=== PATIENT | female | born 1960 | race Caucasian/White ===

== ENCOUNTER → 2017-01-31 | Outpatient (CLI) | payer OTHER, BC ==
[2015-11-17 11:25] VITALS: BP 188/93
[~2017-01-31] MED LIST: DAILY VITE1 TA1 PO; MINOCYCLINE HC100 MG PO
== END ==
LOC: LAB 16:36
DX: Z00.00 Encounter for general adult medical examination without abnormal findings (principal)

== ENCOUNTER → 2017-11-04 | Outpatient (CLI) | payer BC ==
[~2017-11-04] VITALS: Ht 160 cm; Wt 95.0 kg
[~2017-11-04] MED LIST changes: +GOOD NEIGHBOR200 M1 PO
[2017-11-04 07:56] LABS: HEMATOCRIT 44.9 % (37.0-47.0); HEMOGLOBIN 14.9 g/dL (12.5-16.0); MEAN CELL VOLUME 89 fl (78-100); MEAN CORPUSCULAR HEMOGLOBIN 30 pg (27-31); MEAN CORPUSCULAR HGB CONC 33 g/dL (33-37); MEAN PLATELET VOLUME 10.2 fl (7.4-10.4); PLATELET COUNT 301 K/mm3 (130-400); RED BLOOD COUNT 5.04 M/mm3 (4.10-5.30); RED CELL DISTRIBUTION WIDTH 13.2 % (11.5-14.5); WHITE BLOOD COUNT 6.7 K/mm3 (4.8-10.8)
[2017-11-04 08:00] VITALS: BP 151/88
[2017-11-04 08:35] LABS: ALBUMIN 4.2 g/dL (3.5-5.0); BUN/CREATININE RATIO 17.3 (6.0-26.0); TOTAL BILIRUBIN 0.7 mg/dL (0.2-1.3); TOTAL PROTEIN 7.7 g/dL (6.3-8.2)
[2017-11-04 08:45] LABS: LYMPHOCYTE 24 % (20-51); MONOCYTE 6 % (3-10); NEUTROPHILS 60 % (42-75)
[2017-11-04 11:25] LABS: URINE APPEARANCE CLEAR; URINE BILIRUBIN NEGATIVE (NEGATIVE); URINE BLOOD NEGATIVE (NEGATIVE); URINE COLOR YELLOW; URINE GLUCOSE NEGATIVE (NEGATIVE); URINE KETONE NEGATIVE (NEGATIVE); URINE LEUKOCYTE ESTERASE NEGATIVE (NEGATIVE); URINE NITRATE NEGATIVE (NEGATIVE); URINE PROTEIN(semi-quant) NEGATIVE (NEGATIVE); URINE UROBILINOGEN NORMAL (NORMAL)
== END ==
LOC: LAB 07:38 → RAD 07:38
PROVIDERS: Internal Medicine
DX: Z00.00 Encounter for general adult medical examination without abnormal findings (principal); Z88.2 Allergy status to sulfonamides

== ENCOUNTER → 2018-02-07 | Outpatient (CLI) | payer BC ==
[2017-11-04 08:00] VITALS: BP 151/88
== END ==
LOC: LAB 16:24
DX: Z00.00 Encounter for general adult medical examination without abnormal findings (principal)

== ENCOUNTER → 2018-04-11 | Day surgery (SDC) | payer BC ==
[2017-11-04 08:00] VITALS: BP 151/88
== END | disposition home or self-care (01) ==
LOC: MSO 09:43
DX: Z12.11 Encounter for screening for malignant neoplasm of colon (principal); I10 Essential (primary) hypertension; Z79.899 Other long term (current) drug therapy
CPT/HCPCS: 00812; J2704; J3010; J7120

== ENCOUNTER → 2019-02-13 | Outpatient (CLI) | payer BC ==
[2017-11-04 08:00] VITALS: BP 151/88
[2019-02-13 17:33] LABS: BASO # 0.1 (0.02-0.10); EOS # 0.6 (0.04-0.40); EOS % 7.5 % (1.0-5.0); HEMATOCRIT 43.6 % (37.0-47.0); HEMOGLOBIN 14.4 g/dL (12.5-16.0); LYMPH# 1.9 (1.50-4.00); MEAN CELL VOLUME 90 fl (78-100); MEAN CORPUSCULAR HEMOGLOBIN 30 pg (27-31); MEAN CORPUSCULAR HGB CONC 33 g/dL (33-37); MEAN PLATELET VOLUME 10.3 fl (7.4-10.4); MONO # 0.4 (0.20-0.80); NEU # 4.3 (1.40-6.50); PLATELET COUNT 299 K/mm3 (130-400); RED BLOOD COUNT 4.85 M/mm3 (4.10-5.30); RED CELL DISTRIBUTION WIDTH 12.9 % (11.5-14.5); WHITE BLOOD COUNT 7.3 K/mm3 (4.8-10.8)
[2019-02-13 18:42] LABS: ERYTHROCYTE SEDIMENTATION RATE 13 mm/hr (0-30)
[2019-02-13 23:25] LABS: ALBUMIN 4.3 g/dL (3.5-5.0); CALCIUM 10.5 mg/dL (8.4-10.2); POTASSIUM 4.1 mmol/L (3.5-5.1); TOTAL BILIRUBIN 0.3 mg/dL (0.2-1.2); TOTAL PROTEIN 7.4 g/dL (6.4-8.3)
== END ==
LOC: LAB 16:36
PROVIDERS: Internal Medicine
DX: F41.9 Anxiety disorder, unspecified (principal); R51 Headache; R53.83 Other fatigue; R20.2 Paresthesia of skin; R63.5 Abnormal weight gain; E78.5 Hyperlipidemia, unspecified; E55.9 Vitamin D deficiency, unspecified; R79.9 Abnormal finding of blood chemistry, unspecified

== ENCOUNTER 2020-02-25 17:37 | Emergency (ER) | payer BC ==
[~2020-02-25] VITALS: Ht 160 cm; Wt 98.2 kg
[~2020-02-25 17:37] MED LIST changes: -CETIRIZINE HCL10 MG PO; -ESCITALOPRAM10 MG PO; -HYDROCHLOROTHIA1 T14 PO; -MACROBID 1100 MG/CAP PO; -PHENAZOPYRIDIN100 MG PO
[2020-02-25] MEDS ORDERED: ESCITALOPRAM10 MG PO (18:28)
[2020-02-25] MEDS ORDERED: HYDROCHLOROTHIA1 T14 PO (18:29)
[2020-02-25] MEDS ORDERED: CETIRIZINE HCL10 MG PO (18:29)
[2020-02-25] MEDS ORDERED: MACROBID 1100 MG/CAP PO (18:29)
[2020-02-25] MEDS ORDERED: PHENAZOPYRIDIN100 MG PO (18:30)
[2020-02-25 18:34] LABS: BASO # 0.1 (0.02-0.10); EOS # 0.5 (0.04-0.40); EOS % 4.5 % (1.0-5.0); HEMATOCRIT 45.1 % (37.0-47.0); HEMOGLOBIN 14.9 g/dL (12.5-16.0); LYMPH# 1.6 (1.50-4.00); MEAN CELL VOLUME 91 fl (78-100); MEAN CORPUSCULAR HEMOGLOBIN 30 pg (27-31); MEAN CORPUSCULAR HGB CONC 33 g/dL (33-37); MEAN PLATELET VOLUME 11.3 fl (7.4-10.4); MONO # 0.8 (0.20-0.80); NEU # 8.1 (1.40-6.50); PLATELET COUNT 225 K/mm3 (130-400); RED BLOOD COUNT 4.98 M/mm3 (4.10-5.30); RED CELL DISTRIBUTION WIDTH 13.5 % (11.5-14.5); WHITE BLOOD COUNT 11.1 K/mm3 (4.8-10.8)
[2020-02-25 18:53] LABS: PH-URINE 6.5 (5.0 - 8.0); URINE APPEARANCE CLOUDY; URINE BILIRUBIN NEGATIVE (NEGATIVE); URINE COLOR YELLOW; URINE GLUCOSE NEGATIVE (NEGATIVE); URINE KETONE NEGATIVE (NEGATIVE); URINE PROTEIN(semi-quant) TRACE mg/dL (NEGATIVE)
[2020-02-25 18:54] LABS: URINE BLOOD 250 ery/uL (NEGATIVE); URINE LEUKOCYTE ESTERASE 2+ (NEGATIVE); URINE NITRATE POSITIVE (NEGATIVE); URINE UROBILINOGEN NORMAL (NORMAL); URINE WBC >50 /hpf (0-3)
[2020-02-25 19:02] LABS: POTASSIUM 4.3 mmol/L (3.5-5.1)
[2020-02-25 19:03] LABS: CALCIUM 9.7 mg/dL (8.3-10.5)
[2020-02-25 19:04] LABS: TOTAL PROTEIN 7.2 g/dL (6.4-8.3)
[2020-02-25 19:06] LABS: TOTAL BILIRUBIN 0.9 mg/dL (0.2-1.2)
[2020-02-25 21:54] VITALS: BP 100/76
== END 2020-02-25 21:54 | disposition home or self-care (01) ==
LOC: ED 17:37
PROVIDERS: Nurse Practitioner Primary Care
DX: N30.90 Cystitis, unspecified without hematuria (principal); I10 Essential (primary) hypertension; K21.9 Gastro-esophageal reflux disease without esophagitis; Z90.710 Acquired absence of both cervix and uterus
CPT/HCPCS: A4216; J0696; J1885; J2270; J2405; J7030; Q9967

== ENCOUNTER → 2020-02-25 | Outpatient (CLI) | payer BC ==
[2017-11-04 08:00] VITALS: BP 151/88
[~2020-02-25] MED LIST changes: +CETIRIZINE HCL10 MG PO; +ESCITALOPRAM10 MG PO; +HYDROCHLOROTHIA1 T14 PO; +MACROBID 1100 MG/CAP PO; +PHENAZOPYRIDIN100 MG PO
== END ==
LOC: LAB 13:15
DX: R30.0 Dysuria (principal)

== ENCOUNTER → 2020-03-11 | Outpatient (CLI) | payer BC ==
[2020-02-25 21:54] VITALS: BP 100/76
[~2020-03-11] MED LIST changes: +CETIRIZINE HCL10 MG PO; +ESCITALOPRAM10 MG PO; +HYDROCHLOROTHIA1 T14 PO; +MACROBID 1100 MG/CAP PO; +PHENAZOPYRIDIN100 MG PO
[2020-03-11 15:54] LABS: POTASSIUM 4.2 mmol/L (3.5-5.1)
[2020-03-11 15:55] LABS: ALBUMIN 4.2 g/dL (3.5-5.0)
[2020-03-11 15:57] LABS: TOTAL PROTEIN 7.6 g/dL (6.4-8.3)
[2020-03-11 15:59] LABS: TOTAL BILIRUBIN 0.7 mg/dL (0.2-1.2)
[2020-03-11 16:13] LABS: BASO # 0.1 (0.02-0.10); EOS # 0.5 (0.04-0.40); EOS % 8.8 % (1.0-5.0); HEMOGLOBIN 14.2 g/dL (12.5-16.0); LYMPH# 1.1 (1.50-4.00); MEAN CELL VOLUME 90 fl (78-100); MEAN CORPUSCULAR HEMOGLOBIN 30 pg (27-31); MEAN CORPUSCULAR HGB CONC 33 g/dL (33-37); MEAN PLATELET VOLUME 10.5 fl (7.4-10.4); MONO # 0.4 (0.20-0.80); NEU # 3.6 (1.40-6.50); PLATELET COUNT 334 K/mm3 (130-400); RED BLOOD COUNT 4.77 M/mm3 (4.10-5.30); WHITE BLOOD COUNT 5.7 K/mm3 (4.8-10.8)
[2020-03-11 16:37] LABS: URINE APPEARANCE CLEAR; URINE BILIRUBIN NEGATIVE (NEGATIVE); URINE BLOOD NEGATIVE (NEGATIVE); URINE COLOR YELLOW; URINE GLUCOSE NEGATIVE (NEGATIVE); URINE KETONE NEGATIVE (NEGATIVE); URINE LEUKOCYTE ESTERASE NEGATIVE (NEGATIVE); URINE NITRATE NEGATIVE (NEGATIVE); URINE PROTEIN(semi-quant) NEGATIVE (NEGATIVE); URINE UROBILINOGEN NORMAL (NORMAL); URINE WBC 0-1 /hpf (0-3)
[2020-03-11 17:35] LABS: ERYTHROCYTE SEDIMENTATION RATE 20 mm/hr (0-30)
== END ==
LOC: LAB 15:18
PROVIDERS: Internal Medicine
DX: Z00.00 Encounter for general adult medical examination without abnormal findings (principal)

== ENCOUNTER → 2020-05-16 | Outpatient (CLI) | payer BC | LOC: LAB 09:28 | DX: Z20.828 Contact with and (suspected) exposure to other viral communicable diseases (principal) ==

== ENCOUNTER → 2021-01-29 | Day surgery (SDC) | payer BC | LOC: MSO 07:54 | DX: K21.00 Gastro-esophageal reflux disease with esophagitis, without bleeding (principal); K22.2 Esophageal obstruction; K25.7 Chronic gastric ulcer without hemorrhage or perforation | CPT/HCPCS: 00731; A4649; C1726; J2704; J7120 ==

== ENCOUNTER → 2021-03-23 | Outpatient (CLI) | payer BC ==
[2021-03-23 16:00] LABS: BASO # 0.07 (0.02-0.10); EOS # 0.52 (0.04-0.40); EOS % 6.6 % (1.0-5.0); HEMATOCRIT 42.3 % (37.0-47.0); HEMOGLOBIN 14.5 g/dL (12.5-16.0); LYMPH# 1.82 (1.50-4.00); MEAN CELL VOLUME 89 fl (78-100); MEAN CORPUSCULAR HEMOGLOBIN 31 pg (27-31); MEAN CORPUSCULAR HGB CONC 34 g/dL (33-37); MONO # 0.42 (0.20-0.80); PLATELET COUNT 260 K/mm3 (130-400); RED BLOOD COUNT 4.73 M/mm3 (4.10-5.30); RED CELL DISTRIBUTION WIDTH 12.5 % (11.5-14.5); WHITE BLOOD COUNT 7.9 K/mm3 (4.8-10.8)
[2021-03-23 16:12] LABS: ALBUMIN 4.2 g/dL (3.5-5.0); POTASSIUM 4.2 mmol/L (3.5-5.1)
[2021-03-23 16:13] LABS: CALCIUM 9.8 mg/dL (8.3-10.5)
[2021-03-23 16:14] LABS: TOTAL PROTEIN 7.3 g/dL (6.4-8.3)
[2021-03-23 16:16] LABS: TOTAL BILIRUBIN 0.9 mg/dL (0.2-1.2)
== END ==
LOC: LAB 15:46
PROVIDERS: Internal Medicine
DX: Z00.00 Encounter for general adult medical examination without abnormal findings (principal)

== ENCOUNTER → 2022-04-01 | Outpatient (CLI) | payer OTHER ==
[2022-04-01 11:22] LABS: BASO # 0.07 K/mm3 (0.02-0.10); EOS # 0.72 K/mm3 (0.04-0.40); EOS % 10.9 % (1.0-5.0); HEMATOCRIT 42.7 % (37.0-47.0); HEMOGLOBIN 14.2 g/dL (12.5-16.0); MEAN CELL VOLUME 91 fl (78-100); MEAN CORPUSCULAR HEMOGLOBIN 30 pg (27-31); MEAN CORPUSCULAR HGB CONC 33 g/dL (33-37); MEAN PLATELET VOLUME 10.3 fl (7.4-10.4); MONO # 0.37 K/mm3 (0.20-0.80); NEU # 3.91 K/mm3 (1.40-6.50); PLATELET COUNT 269 K/mm3 (130-400); RED CELL DISTRIBUTION WIDTH 12.4 % (11.5-14.5); WHITE BLOOD COUNT 6.6 K/mm3 (4.8-10.8)
[2022-04-01 11:55] LABS: ALBUMIN 4.1 g/dL (3.5-5.0); POTASSIUM 4.4 mmol/L (3.5-5.1)
[2022-04-01 11:56] LABS: CALCIUM 9.5 mg/dL (8.3-10.5)
[2022-04-01 11:58] LABS: TOTAL PROTEIN 7.1 g/dL (6.4-8.3)
[2022-04-01 12:00] LABS: TOTAL BILIRUBIN 0.6 mg/dL (0.2-1.2)
== END ==
LOC: LAB 10:56
PROVIDERS: Internal Medicine
DX: Z00.00 Encounter for general adult medical examination without abnormal findings (principal); Z12.31 Encounter for screening mammogram for malignant neoplasm of breast

== ENCOUNTER → 2022-11-17 | Outpatient (CLI) | payer OTHER ==
[~2022-11-17] VITALS: Ht 160 cm; Wt 98.2 kg
[2022-11-17 12:37] VITALS: BP 136/82
[2022-11-17 12:44] LABS: ALBUMIN 3.6 g/dL (3.4-4.8); POTASSIUM 3.6 mmol/L (3.5-5.1)
[2022-11-17 12:45] LABS: CALCIUM 9.8 mg/dL (8.3-10.5)
[2022-11-17 12:46] LABS: TOTAL PROTEIN 7.1 g/dL (6.2-8.1)
[2022-11-17 12:48] LABS: TOTAL BILIRUBIN 1.1 mg/dL (0.2-1.2)
[2022-11-17 13:09] LABS: BASO # 0.03 K/mm3 (0.02-0.10); EOS # 0.21 K/mm3 (0.04-0.40); EOS % 2.3 % (1.0-5.0); HEMATOCRIT 38.7 % (37.0-47.0); LYMPH# 0.82 K/mm3 (1.50-4.00); MEAN CELL VOLUME 90 fl (78-100); MEAN CORPUSCULAR HEMOGLOBIN 30 pg (27-31); MEAN CORPUSCULAR HGB CONC 34 g/dL (33-37); MEAN PLATELET VOLUME 9.9 fl (7.4-10.4); MONO # 0.74 K/mm3 (0.20-0.80); NEU # 7.39 K/mm3 (1.40-6.50); PLATELET COUNT 239 K/mm3 (130-400); RED BLOOD COUNT 4.31 M/mm3 (4.10-5.30); RED CELL DISTRIBUTION WIDTH 12.2 % (11.5-14.5); WHITE BLOOD COUNT 9.2 K/mm3 (4.8-10.8)
[2022-11-17 15:30] VITALS: BP 129/78
== END ==
LOC: LAB 11:35
PROVIDERS: Family Medicine
DX: N39.0 Urinary tract infection, site not specified (principal); N28.81 Hypertrophy of kidney
CPT/HCPCS: J2405; J7030

== ENCOUNTER → 2024-04-16 | Outpatient (CLI) | payer OTHER ==
[2024-04-16 15:10] LABS: BASO # 0.03 K/mm3 (0.02-0.10); EOS # 0.47 K/mm3 (0.04-0.40); EOS % 6.3 % (1.0-5.0); HEMATOCRIT 43.7 % (37.0-47.0); HEMOGLOBIN 14.9 g/dL (12.5-16.0); MEAN CELL VOLUME 89 fl (78-100); MEAN CORPUSCULAR HEMOGLOBIN 31 pg (27-31); MEAN CORPUSCULAR HGB CONC 34 g/dL (33-37); MEAN PLATELET VOLUME 9.4 fl (7.4-10.4); MONO # 0.37 K/mm3 (0.20-0.80); NEU # 5.04 K/mm3 (1.40-6.50); PLATELET COUNT 330 K/mm3 (130-400); RED BLOOD COUNT 4.89 M/mm3 (4.10-5.30); RED CELL DISTRIBUTION WIDTH 12.7 % (11.5-14.5); WHITE BLOOD COUNT 7.4 K/mm3 (4.8-10.8)
[2024-04-16 15:17] LABS: ALBUMIN 4.4 g/dL (3.4-4.8)
[2024-04-16 15:18] LABS: CALCIUM 10.8 mg/dL (8.3-10.5)
[2024-04-16 15:20] LABS: TOTAL PROTEIN 7.6 g/dL (6.2-8.1)
[2024-04-16 15:21] LABS: TOTAL BILIRUBIN 0.6 mg/dL (0.2-1.2)
[2024-04-16 15:26] LABS: MAGNESIUM 1.87 mg/dL (1.60-2.60)
== END ==
LOC: LAB 14:57
PROVIDERS: Internal Medicine
DX: Z00.00 Encounter for general adult medical examination without abnormal findings (principal)